=== PATIENT | male | born 1965 | race Caucasian/White ===

== ENCOUNTER 2017-04-07 22:19 | Emergency (ER) | payer OTHER ==
[~2017-04-07] VITALS: Ht 177.8 cm; Wt 102.3 kg
[2017-04-07 22:22] VITALS: TEMP 36.7
[2017-04-07] MEDS ORDERED: SODIUM CHLORIDE 0.9% 1000ML 1,000 ML IV STA (22:32)
[2017-04-07] MEDS ORDERED: KETOROLAC TROMETHAMINE 30 MG/ML VIAL IV STA (22:32)
[2017-04-07] MEDS ORDERED: ONDANSETRON INJ 2 MG/ML 2 ML VIAL IV STA (22:32)
[2017-04-07 22:49] VITALS: Ht 177.8 cm; Wt 102.3 kg
[2017-04-07 22:50] VITALS: O2SAT 93
[2017-04-07 22:50] LABS: BASO % 0.2 %; BASO ABS # 0.02 K/uL (0-0.2); COMPLETE YES; EOS % 2.3 %; HEMATOCRIT 44.5 % (42-52); IG% 0.1 %; LYMPH % 43.1 %; LYMPH ABS # 3.76 K/uL (1.2-3.4); MEAN CELL VOLUME 87.9 fL (80-100); MEAN CORPUSCULAR HEMOGLOBIN 31.8 pg (25-34); MEAN CORPUSCULAR HGB CONC 36.2 g/dl (32-36); MEAN PLATELET VOLUME 8.9 fL (7.4-10.4); MONO % 7.6 %; NEUT % 46.7 %; PLATELET COUNT 151 K/uL (130-400); RED BLOOD COUNT 5.06 M/uL (4.7-6.1); WHITE BLOOD COUNT 8.72 K/uL (4.8-10.8)
--- NOTE | 2017-04-07 22:50 | EMERGENCY ROOM VISIT NOTE ---
History Report prepared by Mirtha: Omer Carson Under the Supervision of: Dr. Rob Andrade M.D. First contact with patient: 22:28 Chief Complaint: BITE Stated Complaint: NAUSEA,TICK ON THIGH/MAYBE GOT IT OFF History of Present Illness The patient is a 51 year old male who presents to the Emergency Room with complaints of nausea for the past day. The patient noticed a tick bite on his leg yesterday. His was able to dig the tick out of his leg. The patient was nauseated and complaining of abdominal pain before and after removing the tick. He also complains of dizziness. Source of History: patient Onset: yesterday Position: other (global) Timing: other (persistent) Associated Symptoms: + abdominal pain Note: Other associated symptoms: dizziness Review of Systems See HPI for pertinent positives & negatives. A total of 10 systems reviewed and were otherwise negative. Past Medical & Surgical Surgical Problems: (1) Bone marrow transplant status Family History Cancer Social History Smoking Status: Never Smoker Marital Status: Housing Status: lives with family Occupation Status: employed Current/Historical Medications No Active Prescriptions or Reported Meds Allergies Coded Allergies: No Known Allergies (Unverified , 04/07/17) Physical Exam Vital Signs Date Time Temp Pulse Resp B/P Pulse Ox O2 Delivery O2 Flow Rate FiO2 04/07/17 23:53 74 16 142/84 96 04/07/17 22:58 68 04/07/17 22:51 66 14 132/89 85 125/91 70 133/90 04/07/17 22:50 93 Room Air 04/07/17 22:50 93 Room Air 04/07/17 22:22 36.7 82 20 138/93 96 Room Air Physical Exam GENERAL: Patient is a pale in appearance. HEAD: Normocephalic atraumatic EYES: Ocular movements intact pupils equal and react to light OROPHARYNX mucous membranes are moist no exudates present no erythema or edema present NECK: Supple no nuchal rigidity CHEST: Good equal expansion LUNGS: Clear and equal to auscultation CARDIAC: Normal S1 and S2 ABDOMEN: Soft nontender no guarding BACK: No CVA tenderness EXTREMITIES: No pain upon palpation normal muscle strength in all groups no clubbing cyanosis or edema NEURO: Patient is following commands is answering questions appropriately. Alert and oriented x3 Cranial Nerves 2-12 grossly intact Medical Decision & Procedures Laboratory Results 04/07/17 22:40 Red Blood Count 5.06, Mean Corpuscular Volume 87.9, Mean Corpuscular Hemoglobin 31.8, Mean Corpuscular Hemoglobin Concent 36.2, Mean Platelet Volume 8.9, Neutrophils (%) (Auto) 46.7, Lymphocytes (%) (Auto) 43.1, Monocytes (%) (Auto) 7.6, Eosinophils (%) (Auto) 2.3, Basophils (%) (Auto) 0.2, Neutrophils # (Auto) 4.07, Lymphocytes # (Auto) 3.76, Monocytes # (Auto) 0.66, Eosinophils # (Auto) 0.20, Basophils # (Auto) 0.02 04/07/17 22:40 Test 04/07/17 22:40 White Blood Count 8.72 K/uL (4.8-10.8) Red Blood Count 5.06 M/uL (4.7-6.1) Hemoglobin 16.1 g/dL (14.0-18.0) Hematocrit 44.5 % (42-52) Mean Corpuscular Volume 87.9 fL (80-100) Mean Corpuscular Hemoglobin 31.8 pg (25-34) Mean Corpuscular Hemoglobin Concent 36.2 g/dl (32-36) Platelet Count 151 K/uL (130-400) Mean Platelet Volume 8.9 fL (7.4-10.4) Neutrophils (%) (Auto) 46.7 % Lymphocytes (%) (Auto) 43.1 % Monocytes (%) (Auto) 7.6 % Eosinophils (%) (Auto) 2.3 % Basophils (%) (Auto) 0.2 % Neutrophils # (Auto) 4.07 K/uL (1.4-6.5) Lymphocytes # (Auto) 3.76 K/uL (1.2-3.4) Monocytes # (Auto) 0.66 K/uL (0.11-0.59) Eosinophils # (Auto) 0.20 K/uL (0-0.5) Basophils # (Auto) 0.02 K/uL (0-0.2) RDW Standard Deviation 40.5 fL (36.4-46.3) RDW Coefficient of Variation 12.8 % (11.5-14.5) Immature Granulocyte % (Auto) 0.1 % Immature Granulocyte # (Auto) 0.01 K/uL (0.00-0.02) Anion Gap 9.0 mmol/L (3-11) Est Creatinine Clear Calc Drug Dose 63.0 ml/min Estimated GFR () 53.7 Estimated GFR (Non- 46.3 BUN/Creatinine Ratio 15.5 (10-20) Calcium Level 8.9 mg/dl (8.5-10.1) Total Bilirubin 0.5 mg/dl (0.2-1) Direct Bilirubin 0.1 mg/dl (0-0.2) Aspartate Amino Transf (AST/SGOT) 45 U/L (15-37) Alanine Aminotransferase (ALT/SGPT) 89 U/L (12-78) Alkaline Phosphatase 71 U/L (45-117) Total Protein 7.6 gm/dl (6.4-8.2) Albumin 4.1 gm/dl (3.4-5.0) Thyroid Stimulating Hormone (TSH) 4.630 uIu/ml (0.300-4.500) Lyme Disease IgG Antibody NEG (NEG) Lyme Disease IgM Antibody NEG (NEG) Labs reviewed by ED physician. Medications Administered Medications (Trade) Dose Ordered Sig/Edvin Route Start Time Stop Time Status Last Admin Dose Admin Sodium Chloride (Nss 1000ml) 1,000 ml @ 999 mls/hr Q1H1M STAT IV 04/07/17 22:32 04/07/17 23:32 DC 04/07/17 22:46 999 MLS/HR Ketorolac Tromethamine (Toradol Inj) 30 mg NOW STAT IV 04/07/17 22:32 04/07/17 22:35 DC 04/07/17 22:46 30 MG Ondansetron HCl (Zofran Inj) 4 mg NOW STAT IV 04/07/17 22:32 04/07/17 22:35 DC 04/07/17 22:46 4 MG Doxycycline Hyclate (Vibramycin Cap) 100 mg NOW STAT PO 04/07/17 23:02 04/07/17 23:03 DC 04/07/17 23:36 100 MG Ondansetron HCl (ZOFRAN ODT 4MG Home Pack) 1 homepack UD ONCE PO 04/07/17 23:30 04/07/17 23:31 DC 04/07/17 23:36 1 HOMEPACK ECG Indication: abdominal pain Rate (beats per minute): 63 Rhythm: normal sinus Findings: no acute ischemic change, no ectopy, other (old anterior infarct) ED Course 2226: Past medical records reviewed. The patient was evaluated in room B10. A complete history and physical examination was performed. 2232: Ordered Zofran Inj 4 mg IV, Toradol Inj 30 mg IV, NSS 1000 ml @ 999 mls/ hr IV. 2302: Ordered Vibramycin Cap 100 mg PO. 2307: At this time, I reevaluated the patient and his discomfort was resolved. He asked not to have x-rays at this time. 2330: Ordered Ondansetron HCl 1 homepack PO. 2334: Upon reexamination the patient is resting comfortably. I discussed results and treatment plan with the patient. He verbalizes agreement and understanding. The patient is ready for discharge. Medical Decision Differential diagnosis: Etiologies such as appendicitis, diverticulitis, PUD, biliary pathology, UTI, pancreatitis, obstruction, mesenteric ischemia, aortic pathology, infections, inflammatory bowel disease, renal colic, as well as others were entertained. This is a 51-year-old male who presents emergency department complaining of nausea as his was removing a tick off his thigh. The patient then became lightheaded and dizzy needed to sit down. I do believe this presentation is consistent with a vasovagal episode. The patient does have a history of bone marrow transplant and his creatinine and BUN are slightly elevated. He was given normal saline bolus along with Zofran. Repeat examination revealed improvement the patient's symptoms. The patient did refuse x-rays in the emergency department. 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 I did confirm this via his records from [place] therefore this is old. Impression Primary Impression: Vasovagal episode Scribe Attestation The scribe's documentation has been prepared under my direction and personally reviewed by me in its entirety. I confirm that the note above accurately reflects all work, treatment, procedures, and medical decision making performed by me. Departure Information Dispostion Home / Self-Care Prescriptions No Active Prescriptions or Reported Meds Referrals No Doctor, Assigned (PCP) Forms HOME CARE DOCUMENTATION FORM, IMPORTANT VISIT INFORMATION Patient Instructions ED Bite Tick Abx Tx, ED Near Syncope Vasovagal, My [facility], Treatment for Vasovagal Syncope Additional Instructions You have been examined and treated today on an emergency basis only. This is not a substitute for, or an effort to provide, complete comprehensive medical care. It is impossible to recognize and treat all injuries or illnesses in a single emergency department visit. It is therefore important that you follow up closely with your PCP. Call as soon as possible for an appointment. Thank you for your time and consideration. I look forward to speaking with you again soon. Please don't hesitate to call us if you have any questions.
[2017-04-07] MEDS ORDERED: DOXYCYCLINE HYCLATE 100 MG CAP PO STA (23:02)
[2017-04-07 23:11] LABS: BUN/CREATININE RATIO 15.5 (10-20); CALCIUM 8.9 mg/dl (8.5-10.1); CREATININE 1.7 mg/dl (0.60-1.40); POTASSIUM 3.6 mmol/L (3.5-5.1)
[2017-04-07 23:21] LABS: THYROID STIMULATING HORMONE 4.63 uIu/ml (0.300-4.500)
[2017-04-07] MEDS ORDERED: ONDANSETRON HOME PACK 4MG OD TAB PO ONE (23:30)
[2017-04-07 23:47] LABS: LYME DISEASE AB IGG NEG (NEG); LYME DISEASE AB IGM NEG (NEG)
[2017-04-07 23:53] VITALS: BP 142/84; PULSE 74; O2SAT 96
== END 2017-04-07 23:39 | disposition home or self-care (01) ==
LOC: C.EDB 22:21
DX: R55 Syncope and collapse (principal); S80.869A Insect bite (nonvenomous), unspecified lower leg, initial encounter; W57.XXXA Bitten or stung by nonvenomous insect and other nonvenomous arthropods, initial encounter; R10.9 Unspecified abdominal pain; R42 Dizziness and giddiness; Z94.81 Bone marrow transplant status